=== PATIENT | male | born 1930 | race Caucasian/White ===

== ENCOUNTER → 2016-07-10 | Outpatient (CLI) | payer MEDICARE, OTHER | END | disposition home or self-care (01) | LOC: CFH 13:13 | PROVIDERS: ATTEND Physician Assistant | DX: E27.9 Disorder of adrenal gland, unspecified (principal); R06.02 Shortness of breath; R63.4 Abnormal weight loss; I48.2 Chronic atrial fibrillation; I10 Essential (primary) hypertension; E03.9 Hypothyroidism, unspecified; R59.1 Generalized enlarged lymph nodes | CPT/HCPCS: 71250; 74176 ==

== ENCOUNTER 2016-07-20 09:22 | Inpatient (IN) | payer MEDICARE, OTHER ==
[~2016-07-20] VITALS: Ht 175.3 cm; Wt 77.4 kg
[2016-07-20] MEDS ORDERED: SODIUM CHLORIDE 0.9% 1,000ML IVBOLUS ONE (09:30)
[2016-07-20] MEDS ORDERED: SODIUM CHLORIDE FLUSH 10ML SYR IVF ONE (09:30)
[2016-07-20] MEDS ORDERED: ONDA4TAB7 PO (09:31)
[2016-07-20] MEDS ORDERED: ASPI-13 PO (09:31)
[2016-07-20] MEDS ORDERED: LEVO100T5 PO (09:31)
[2016-07-20] MEDS ORDERED: ATEN25TA PO (09:31)
[2016-07-20 09:57] LABS: ASPARTATE AMINO TRANSFERASE 104 U/L (15-37); BLOOD UREA NITROGEN 29 mg/dL (7-18)
[2016-07-20 10:04] LABS: IS PT STATUS REG ER OR PRE ER? YES
[2016-07-20 10:10] LABS: DIFF TOTAL CELLS COUNTED 100 CELL DIFF
[2016-07-20 10:15] LABS: VERIFY COUNTS? YES
[2016-07-20] MEDS ORDERED: DILTIAZEM 60 MG TABLET PO ONE (10:30)
[2016-07-20] MEDS ORDERED: DILTIAZEM 5 MG/ML, 5ML IVPush ONE (10:30)
[2016-07-20] MEDS ORDERED: CEFTRIAXONE PMX 1GM/50ML 50 ML ONE (11:10)
[2016-07-20] MEDS ORDERED: DILTIAZEM 5 MG/ML, 5ML ONE (11:11)
[2016-07-20] MEDS ORDERED: CEFTRIAXONE PMX 1GM/50ML 50 ML IV ONE (11:30)
[2016-07-20] MEDS ORDERED: DOCUSATE 100 MG CAPSULE PO PRN (13:00)
[2016-07-20] MEDS ORDERED: HYDROcodone/APAP 5/325 TABLET PO PRN (13:00)
[2016-07-20] MEDS ORDERED: BISACODYL 10 MG SUPP PR PRN (13:00)
[2016-07-20] MEDS ORDERED: MORPHINE SULFATE 4 MG/ML, 1ML IVPush PRN (13:00)
[2016-07-20] MEDS ORDERED: CEFTRIAXONE PMX 1GM/50ML 50 ML IV SCH (13:00)
[2016-07-20] MEDS ORDERED: POLYETHYLENE GLYCOL 17 GM PACKET PO PRN (13:00)
[2016-07-20] MEDS ORDERED: ONDANSETRON 2MG/ML, 2ML IVP PRN (13:00)
[2016-07-20] MEDS ORDERED: LABETALOL 5MG/ML, 20ML IV PRN (13:00)
[2016-07-20] MEDS: SODIUM CHLORIDE 0.9% 1,000 ML IV SCH ×2 (13:39→22:47)
[2016-07-20] MEDS ORDERED: HEPARIN 5,000 UNITS/ML, 1ML IV ONE (17:00)
[2016-07-20] MEDS ORDERED: HEPARIN 5,000 UNITS/ML, 1ML IV PRN (17:00)
[2016-07-20] MEDS ORDERED: HEPARIN 25,000 UNITS/500ML PMX 500 ML IV PRN (17:00)
[2016-07-20] MEDS ORDERED: HEPARIN 25,000 UNITS/500ML PMX 500 ML ONE (17:34)
[2016-07-20] MEDS ORDERED: HEPARIN 5,000 UNITS/ML, 1ML ONE (17:42)
[2016-07-20] MEDS: ATENOLOL 25 MG TABLET PO SCH (23:46)
[2016-07-21 00:17] VITALS: BP 125/85
[2016-07-21 01:12] VITALS: BP 124/85
[2016-07-21 07:47] VITALS: BP 108/74
[2016-07-21 08:36] LABS: ASPARTATE AMINO TRANSFERASE 130 U/L (15-37); BLOOD UREA NITROGEN 22 mg/dL (7-18)
[2016-07-21] MEDS: ATENOLOL 25 MG TABLET PO SCH (08:54)
[2016-07-21] MEDS: ASPIRIN 325 MG TABLET EC PO SCH (08:54)
[2016-07-21] MEDS: LEVOTHYROXINE 100 MCG TABLET PO SCH ×2 (08:54→11:13)
[2016-07-21] MEDS: HEPARIN 5,000 UNITS/ML, 1ML SQ SCH ×2 (09:02→17:43)
[2016-07-21] MEDS ORDERED: SODIUM CHLORIDE 0.9% 1,000 ML IV SCH (11:00)
[2016-07-21 14:15] VITALS: BP 102/64
[2016-07-21] MEDS ORDERED: OMNIPAQUE 350 MG/ML, 100ML BOTTLE ONE ×2 (14:33→18:51)
[2016-07-21] MEDS: CEFTRIAXONE PMX 1GM/50ML 50 ML IV SCH (14:56)
[2016-07-21 17:42] VITALS: BP 117/72
[2016-07-21] MEDS: METOPROLOL TARTRATE 100 MG TABLET PO SCH (17:42)
[2016-07-21 19:19] VITALS: BP 90/57
[2016-07-22 00:42] VITALS: BP 100/60
[2016-07-22] MEDS: HEPARIN 5,000 UNITS/ML, 1ML SQ SCH ×3 (01:53→17:30)
[2016-07-22] MEDS: METOPROLOL TARTRATE 100 MG TABLET PO SCH ×2 (05:22→17:30)
[2016-07-22] MEDS: LEVOTHYROXINE 100 MCG TABLET PO SCH (05:22)
[2016-07-22 07:19] VITALS: BP 127/93
[2016-07-22] MEDS: ASPIRIN 325 MG TABLET EC PO SCH (08:53)
[2016-07-22 14:32] VITALS: BP 138/104
[2016-07-22] MEDS: CEFTRIAXONE PMX 1GM/50ML 50 ML IV SCH (14:59)
[2016-07-22 19:46] VITALS: BP 122/90
[2016-07-23] MEDS: HEPARIN 5,000 UNITS/ML, 1ML SQ SCH (00:03)
[2016-07-23 00:54] VITALS: BP 99/65
[2016-07-23] MEDS: LEVOTHYROXINE 100 MCG TABLET PO SCH (05:25)
[2016-07-23] MEDS: METOPROLOL TARTRATE 100 MG TABLET PO SCH ×2 (05:26→17:27)
[2016-07-23 06:01] LABS: BLOOD UREA NITROGEN 16 mg/dL (7-18)
[2016-07-23 06:02] LABS: ASPARTATE AMINO TRANSFERASE 136 U/L (15-37); PROSTATE SPECIFIC ANTIGEN 4.79 ng/mL (0.00-4.00)
[2016-07-23 06:30] LABS: DIFF TOTAL CELLS COUNTED 100 CELL DIFF
[2016-07-23 06:31] LABS: VERIFY COUNTS? YES
[2016-07-23] MEDS: ASPIRIN 325 MG TABLET EC PO SCH (07:53)
[2016-07-23 08:20] VITALS: BP 122/87
[2016-07-23] MEDS ORDERED: DIGOXIN 0.25 MG/ML, 2ML IVPush ONE (08:30)
[2016-07-23] MEDS ORDERED: AMIODARONE 150 MG in DEXTROSE 5% 100 ML IV ONE (09:00)
[2016-07-23] MEDS ORDERED: FILTER 0.22 MICRON FOR AMIODARONE IV PRN (09:30)
[2016-07-23] MEDS: AMIODARONE 900 MG in DEXTROSE 5% 482 ML IV PRN (11:47)
[2016-07-23] MEDS: CEFTRIAXONE PMX 1GM/50ML 50 ML IV SCH (14:42)
[2016-07-23 15:29] VITALS: BP 126/82
[2016-07-23 19:55] VITALS: BP 138/87
[2016-07-24 01:48] VITALS: BP 136/95
[2016-07-24] MEDS: ACETAMINOPHEN 325 MG TABLET PO PRN ×3 (02:29→21:34)
[2016-07-24 06:11] LABS: BLOOD UREA NITROGEN 13 mg/dL (7-18)
[2016-07-24] MEDS: METOPROLOL TARTRATE 100 MG TABLET PO SCH ×2 (06:14→17:39)
[2016-07-24] MEDS: LEVOTHYROXINE 100 MCG TABLET PO SCH (06:14)
[2016-07-24 06:44] LABS: DIFF TOTAL CELLS COUNTED 100 CELL DIFF
[2016-07-24 06:45] LABS: VERIFY COUNTS? YES
[2016-07-24 07:38] VITALS: BP 139/104
[2016-07-24] MEDS: DIGOXIN 0.25 MG TABLET PO SCH (08:56)
[2016-07-24] MEDS: POLYETHYLENE GLYCOL 17 GM PACKET PO SCH (08:56)
[2016-07-24] MEDS: AMIODARONE 900 MG in DEXTROSE 5% 482 ML IV PRN (09:10)
[2016-07-24 13:13] VITALS: BP 139/79
[2016-07-24] MEDS: CEFTRIAXONE PMX 1GM/50ML 50 ML IV SCH (14:57)
[2016-07-24 19:28] VITALS: BP 130/89
[2016-07-24] MEDS: AMIODARONE 200 MG TABLET PO SCH (21:34)
[2016-07-25 02:16] VITALS: BP 133/87
[2016-07-25] MEDS: ACETAMINOPHEN 325 MG TABLET PO PRN (02:42)
[2016-07-25] MEDS: METOPROLOL TARTRATE 100 MG TABLET PO SCH (05:44)
[2016-07-25] MEDS: LEVOTHYROXINE 100 MCG TABLET PO SCH (05:44)
[2016-07-25 06:15] LABS: ASPARTATE AMINO TRANSFERASE 141 U/L (15-37); BLOOD UREA NITROGEN 12 mg/dL (7-18)
[2016-07-25 07:43] VITALS: BP 126/82
[2016-07-25] MEDS: POLYETHYLENE GLYCOL 17 GM PACKET PO SCH (09:00)
[2016-07-25] MEDS: DIGOXIN 0.25 MG TABLET PO SCH (09:33)
[2016-07-25] MEDS: AMIODARONE 200 MG TABLET PO SCH (09:34)
[2016-07-25] MEDS ORDERED: DIGO250T PO (12:34)
[2016-07-25] MEDS ORDERED: DOCU-30 PO (12:34)
[2016-07-25] MEDS ORDERED: AMIO200T42 PO (12:34)
[2016-07-25] MEDS ORDERED: CEFD300C37 PO (12:34)
[2016-07-25] MEDS ORDERED: POLY17PO5 PO (12:34)
[2016-07-25] MEDS ORDERED: METO-99 PO (12:34)
[2016-07-25 13:18] VITALS: BP 113/78
[2016-07-25] MEDS: CEFTRIAXONE PMX 1GM/50ML 50 ML IV SCH (13:31)
== END 2016-07-25 15:30 | disposition home health service (06) | DRG 308 ==
LOC: ED 09:56 → EDIP 11:31 → 5SO 20:02 → DCLOUNGE 07-25 15:05
PROVIDERS: ADMIT Internal Medicine; ATTEND Internal Medicine
DX: I48.0 Paroxysmal atrial fibrillation (principal); N17.0 Acute kidney failure with tubular necrosis; E87.1 Hypo-osmolality and hyponatremia; E44.0 Moderate protein-calorie malnutrition; C78.7 Secondary malignant neoplasm of liver and intrahepatic bile duct; D68.59 Other primary thrombophilia; D64.9 Anemia, unspecified; B96.20 Unspecified Escherichia coli [E. coli] as the cause of diseases classified elsewhere; E03.9 Hypothyroidism, unspecified; I48.2 Chronic atrial fibrillation; E27.9 Disorder of adrenal gland, unspecified; I45.6 Pre-excitation syndrome; R73.9 Hyperglycemia, unspecified; R74.0 Nonspecific elevation of levels of transaminase and lactic acid dehydrogenase [LDH]; R59.0 Localized enlarged lymph nodes; N30.90 Cystitis, unspecified without hematuria; Z66 Do not resuscitate; Z68.25 Body mass index [BMI] 25.0-25.9, adult; Z88.1 Allergy status to other antibiotic agents; Z88.0 Allergy status to penicillin; Z88.8 Allergy status to other drugs, medicaments and biological substances; Z79.82 Long term (current) use of aspirin; Z79.899 Other long term (current) drug therapy; Z82.49 Family history of ischemic heart disease and other diseases of the circulatory system; Z83.3 Family history of diabetes mellitus; Z85.828 Personal history of other malignant neoplasm of skin; Z87.440 Personal history of urinary (tract) infections; Z95.0 Presence of cardiac pacemaker
CPT/HCPCS: 36415; 71010; 74177; 76705; 78582; 80048; 80053; 81001; 83605; 83735; 83880; 84145; 84153; 84443; 84484; 85025; 85379; 85520; 85610; 85730; 87040; 87077; 87086; 87186; 87324; 93005; 93970; 96365; 96366; 96367; 96375; 96376; J0696; J1644; J2250; J2405; J3010; Q9967; A9540; A9558; C9898; J0282; J1160; J2310; J7030; J7060

== ENCOUNTER 2016-07-27 06:13 | Day surgery (SDC) | payer MEDICARE, OTHER ==
[~2016-07-27] VITALS: Ht 175.3 cm; Wt 74.5 kg
[~2016-07-27 06:13] MED LIST: AMIO200T42 PO; ASPI-13 PO; ATEN25TA PO; CEFD300C2 PO; DIGO250T PO; DOCU-30 PO; LEVO100T5 PO; METO-99 PO; ONDA4TAB7 PO; POLY17PO5 PO
[2016-07-27] MEDS ORDERED: SODIUM CHLORIDE 0.9% 1,000 ML IV SCH (06:33)
[2016-07-27 07:15] VITALS: BP 100/70
[2016-07-27] MEDS ORDERED: MIDAZOLAM 1 MG/ML, 5ML ONE (07:39)
[2016-07-27] MEDS ORDERED: NALOXONE 1 MG/ML, 2ML ONE (07:40)
[2016-07-27] MEDS ORDERED: FLUMAZENIL 0.1 MG/1 ML, 5ML ONE (07:40)
[2016-07-27] MEDS ORDERED: FENTANYL PF 100 MCG/2ML ONE (07:40)
== END 2016-07-27 11:05 | disposition home or self-care (01) ==
LOC: OUT 06:13
PROVIDERS: ATTEND Internal Medicine
DX: R16.0 Hepatomegaly, not elsewhere classified (principal); I11.9 Hypertensive heart disease without heart failure
CPT/HCPCS: 36415; 47000; 77012; 85610; 88307; J2250; J3010; 99156; 99157; J2310

== ENCOUNTER 2016-07-27 11:12 | Inpatient (IN) | payer MEDICARE, OTHER ==
[~2016-07-27] VITALS: Ht 167.6 cm; Wt 82.6 kg
[~2016-07-27 11:12] MED LIST changes: -CEFD300C2 PO; +CEFD300C37 PO
[2016-07-27 12:13] LABS: BLOOD UREA NITROGEN 17 mg/dL (7-18)
[2016-07-27 12:29] LABS: DIFF TOTAL CELLS COUNTED 100 CELL DIFF
[2016-07-27 12:30] LABS: VERIFY COUNTS? YES
[2016-07-27] MEDS ORDERED: VANCOMYCIN PER PHARMACY MC ONE (12:38)
[2016-07-27] MEDS ORDERED: CEFTRIAXONE PMX 1GM/50ML 50 ML ONE (12:47)
[2016-07-27] MEDS ORDERED: CEFTRIAXONE PMX 1GM/50ML 50 ML IV ONE (13:00)
[2016-07-27] MEDS ORDERED: VANCOMYCIN 1,500 MG in SODIUM CHLORIDE 0.9% 250 ML IV ONE (13:30)
[2016-07-27] MEDS ORDERED: VANCOMYCIN 1,500 MG in SODIUM CHLORIDE 0.9% 500 ML IV ONE (14:00)
[2016-07-27] MEDS: SODIUM CHLORIDE 0.9% 1,000 ML IV SCH ×2 (14:20→22:58)
[2016-07-27] MEDS ORDERED: MORPHINE SULFATE 4 MG/ML, 1ML IVPush PRN (14:30)
[2016-07-27] MEDS ORDERED: VANCOMYCIN PER PHARMACY MC PRN (14:30)
[2016-07-27] MEDS ORDERED: DOCUSATE 100 MG CAPSULE PO PRN (14:30)
[2016-07-27] MEDS ORDERED: POLYETHYLENE GLYCOL 17 GM PACKET PO PRN (14:30)
[2016-07-27] MEDS ORDERED: PIPERACILLIN/TAZO/PMX 3.375GM 50 ML IV SCH (15:00)
[2016-07-27] MEDS ORDERED: ENOXAPARIN 40 MG/0.4 ML ONE (15:04)
[2016-07-27] MEDS: ENOXAPARIN 40 MG/0.4 ML SQ SCH (16:07)
[2016-07-27] MEDS ORDERED: PHARMACOKINETIC CONSULTATION MC ONE (16:30)
[2016-07-27] MEDS ORDERED: PHARMACOKINETIC MONITORING MC PRN (16:30)
[2016-07-27] MEDS: PIPERACILLIN/TAZO/PMX 3.375GM 50 ML IV SCH ×2 (17:35→22:52)
[2016-07-27] MEDS ORDERED: SODIUM CHLORIDE 0.9%, 500ML IVBOLUS ONE (19:30)
[2016-07-27] MEDS: METOPROLOL TARTRATE 100 MG TABLET PO SCH (20:03)
[2016-07-27 20:50] VITALS: BP 102/67
[2016-07-27] MEDS: AMIODARONE 200 MG TABLET PO SCH (22:52)
[2016-07-27] MEDS: FAMOTIDINE 20 MG/2 ML IV SCH (22:52)
[2016-07-28 02:24] VITALS: BP 112/80
[2016-07-28] MEDS: ACETAMINOPHEN 325 MG TABLET PO PRN ×2 (02:28→20:44)
[2016-07-28] MEDS: METOPROLOL TARTRATE 100 MG TABLET PO SCH ×2 (05:08→18:36)
[2016-07-28] MEDS: PIPERACILLIN/TAZO/PMX 3.375GM 50 ML IV SCH ×2 (05:08→12:20)
[2016-07-28 05:28] LABS: BLOOD UREA NITROGEN 18 mg/dL (7-18)
[2016-07-28 07:12] LABS: DIFF TOTAL CELLS COUNTED 100 CELL DIFF
[2016-07-28 07:13] LABS: VERIFY COUNTS? YES
[2016-07-28 07:47] VITALS: BP 123/77
[2016-07-28] MEDS: AMIODARONE 200 MG TABLET PO SCH ×2 (08:52→20:44)
[2016-07-28] MEDS: DIGOXIN 0.25 MG TABLET PO SCH (08:52)
[2016-07-28] MEDS: FAMOTIDINE 20 MG/2 ML IV SCH ×2 (08:53→20:44)
[2016-07-28] MEDS: ASPIRIN 325 MG TABLET EC PO SCH (08:53)
[2016-07-28] MEDS: LEVOTHYROXINE 100 MCG TABLET PO SCH (08:53)
[2016-07-28] MEDS: SODIUM CHLORIDE 0.9% 1,000 ML IV SCH (12:20)
[2016-07-28] MEDS ORDERED: VANCOMYCIN 1,600 MG in SODIUM CHLORIDE 0.9% 250 ML IV SCH (14:00)
[2016-07-28 14:34] VITALS: BP 141/100
[2016-07-28] MEDS: CEFTAROLINE 400 MG in SODIUM CHLORIDE 0.9% 100 ML IV SCH (15:11)
[2016-07-28] MEDS: ENOXAPARIN 40 MG/0.4 ML SQ SCH (15:11)
[2016-07-28 18:34] VITALS: BP 134/90
[2016-07-28] MEDS: ONDANSETRON 2MG/ML, 2ML IVP PRN (18:36)
[2016-07-28 21:23] VITALS: BP 116/65
[2016-07-29] MEDS: SODIUM CHLORIDE 0.9% 1,000 ML IV SCH ×2 (01:01→14:16)
[2016-07-29 02:22] VITALS: BP 132/91
[2016-07-29] MEDS: CEFTAROLINE 400 MG in SODIUM CHLORIDE 0.9% 100 ML IV SCH ×2 (02:25→14:17)
[2016-07-29] MEDS: METOPROLOL TARTRATE 100 MG TABLET PO SCH ×2 (05:31→17:43)
[2016-07-29] MEDS: LEVOTHYROXINE 100 MCG TABLET PO SCH (05:31)
[2016-07-29 06:07] LABS: ASPARTATE AMINO TRANSFERASE 577 U/L (15-37); BLOOD UREA NITROGEN 15 mg/dL (7-18)
[2016-07-29 06:33] LABS: DIFF TOTAL CELLS COUNTED 100 CELL DIFF
[2016-07-29 06:36] LABS: VERIFY COUNTS? YES
[2016-07-29 06:58] VITALS: BP 145/80
[2016-07-29] MEDS: FAMOTIDINE 20 MG/2 ML IV SCH ×2 (09:20→21:53)
[2016-07-29] MEDS: ASPIRIN 325 MG TABLET EC PO SCH (09:23)
[2016-07-29] MEDS: AMIODARONE 200 MG TABLET PO SCH (09:23)
[2016-07-29] MEDS: DIGOXIN 0.25 MG TABLET PO SCH (09:24)
[2016-07-29] MEDS: ONDANSETRON 2MG/ML, 2ML IVP PRN ×2 (12:21→17:42)
[2016-07-29 14:00] VITALS: BP 131/82
[2016-07-29] MEDS: ENOXAPARIN 40 MG/0.4 ML SQ SCH (16:04)
[2016-07-29 20:00] VITALS: BP 122/76
[2016-07-30 01:54] VITALS: BP 120/71
[2016-07-30] MEDS: CEFTAROLINE 400 MG in SODIUM CHLORIDE 0.9% 100 ML IV SCH ×2 (02:11→13:49)
[2016-07-30 05:31] LABS: BLOOD UREA NITROGEN 13 mg/dL (7-18)
[2016-07-30 06:05] LABS: DIFF TOTAL CELLS COUNTED 100 CELL DIFF
[2016-07-30 06:06] LABS: VERIFY COUNTS? YES
[2016-07-30 06:08] LABS: ANISOCYTOSIS 1+; LARGE PLATELETS 1+
[2016-07-30 06:09] LABS: POLYCHROMASIA 1+
[2016-07-30 06:27] VITALS: BP 129/78
[2016-07-30] MEDS: SODIUM CHLORIDE 0.9% 1,000 ML IV SCH ×2 (06:30→16:42)
[2016-07-30] MEDS: METOPROLOL TARTRATE 100 MG TABLET PO SCH ×2 (06:30→18:25)
[2016-07-30] MEDS: LEVOTHYROXINE 100 MCG TABLET PO SCH (06:31)
[2016-07-30 06:37] VITALS: BP 129/78
[2016-07-30] MEDS: ASPIRIN 325 MG TABLET EC PO SCH (08:14)
[2016-07-30] MEDS: FAMOTIDINE 20 MG/2 ML IV SCH ×2 (08:14→21:00)
[2016-07-30] MEDS: ONDANSETRON 2MG/ML, 2ML IVP PRN (08:15)
[2016-07-30] MEDS: DIGOXIN 0.25 MG TABLET PO SCH (08:18)
[2016-07-30 13:01] VITALS: BP 124/78
[2016-07-30] MEDS: ENOXAPARIN 40 MG/0.4 ML SQ SCH (16:35)
[2016-07-30 20:30] VITALS: BP 148/75
[2016-07-31 01:24] VITALS: BP 146/87
[2016-07-31] MEDS: CEFTAROLINE 400 MG in SODIUM CHLORIDE 0.9% 100 ML IV SCH ×2 (01:32→15:52)
[2016-07-31 05:56] LABS: ASPARTATE AMINO TRANSFERASE 218 U/L (15-37); BLOOD UREA NITROGEN 13 mg/dL (7-18)
[2016-07-31 05:59] VITALS: BP 139/87
[2016-07-31] MEDS: METOPROLOL TARTRATE 100 MG TABLET PO SCH ×2 (06:02→17:07)
[2016-07-31] MEDS: LEVOTHYROXINE 100 MCG TABLET PO SCH (06:02)
[2016-07-31 07:18] VITALS: BP 120/80
[2016-07-31] MEDS: SODIUM CHLORIDE 0.9% 1,000 ML IV SCH ×2 (07:25→17:07)
[2016-07-31] MEDS: DIGOXIN 0.25 MG TABLET PO SCH (08:22)
[2016-07-31] MEDS: FAMOTIDINE 20 MG/2 ML IV SCH ×2 (08:22→21:51)
[2016-07-31] MEDS: ASPIRIN 325 MG TABLET EC PO SCH (08:23)
[2016-07-31 12:40] VITALS: BP 122/85
[2016-07-31] MEDS: ONDANSETRON 2MG/ML, 2ML IVP PRN (13:22)
[2016-07-31] MEDS: ENOXAPARIN 40 MG/0.4 ML SQ SCH (17:07)
[2016-07-31 19:03] VITALS: BP 128/80
[2016-08-01 01:02] VITALS: BP 124/75
[2016-08-01] MEDS: CEFTAROLINE 400 MG in SODIUM CHLORIDE 0.9% 100 ML IV SCH ×2 (04:09→17:35)
[2016-08-01] MEDS: SODIUM CHLORIDE 0.9% 1,000 ML IV SCH ×3 (04:10→20:53)
[2016-08-01 05:15] VITALS: BP 131/92
[2016-08-01] MEDS: ACETAMINOPHEN 325 MG TABLET PO PRN (05:24)
[2016-08-01] MEDS: LEVOTHYROXINE 100 MCG TABLET PO SCH (05:24)
[2016-08-01] MEDS: METOPROLOL TARTRATE 100 MG TABLET PO SCH ×2 (05:24→17:35)
[2016-08-01 08:53] VITALS: BP 138/88
[2016-08-01] MEDS: FAMOTIDINE 20 MG/2 ML IV SCH ×2 (09:13→20:53)
[2016-08-01] MEDS: DIGOXIN 0.25 MG TABLET PO SCH (09:13)
[2016-08-01] MEDS: ONDANSETRON 2MG/ML, 2ML IVP PRN (09:13)
[2016-08-01] MEDS: ASPIRIN 325 MG TABLET EC PO SCH (09:13)
[2016-08-01 09:47] LABS: BLOOD UREA NITROGEN 14 mg/dL (7-18)
[2016-08-01 10:08] LABS: ANISOCYTOSIS 1+
[2016-08-01 10:09] LABS: LARGE PLATELETS 1+; POLYCHROMASIA 1+
[2016-08-01 15:32] VITALS: BP 137/87
[2016-08-01] MEDS: ENOXAPARIN 40 MG/0.4 ML SQ SCH (17:35)
[2016-08-01 21:00] VITALS: BP 145/85
[2016-08-02 01:11] VITALS: BP 153/81
[2016-08-02] MEDS: SODIUM CHLORIDE 0.9% 1,000 ML IV SCH ×2 (03:01→22:00)
[2016-08-02] MEDS: CEFTAROLINE 400 MG in SODIUM CHLORIDE 0.9% 100 ML IV SCH ×2 (04:14→15:45)
[2016-08-02 05:30] VITALS: BP 137/98
[2016-08-02] MEDS: LEVOTHYROXINE 100 MCG TABLET PO SCH (05:35)
[2016-08-02] MEDS: METOPROLOL TARTRATE 100 MG TABLET PO SCH ×2 (05:35→16:55)
[2016-08-02 05:37] VITALS: BP 137/98
[2016-08-02 06:00] LABS: BLOOD UREA NITROGEN 14 mg/dL (7-18)
[2016-08-02 06:05] LABS: ASPARTATE AMINO TRANSFERASE 157 U/L (15-37)
[2016-08-02 06:35] LABS: DIFF TOTAL CELLS COUNTED 100 CELL DIFF
[2016-08-02 06:37] LABS: ANISOCYTOSIS 1+; POIKILOCYTOSIS 1+; POLYCHROMASIA 1+; VERIFY COUNTS? YES
[2016-08-02 07:34] VITALS: BP 150/94
[2016-08-02] MEDS: ASPIRIN 325 MG TABLET EC PO SCH (08:05)
[2016-08-02] MEDS: FAMOTIDINE 20 MG/2 ML IV SCH (08:05)
[2016-08-02] MEDS: DIGOXIN 0.25 MG TABLET PO SCH (08:05)
[2016-08-02] MEDS: LORazepam INTENSOL 2 MG/ML BC PRN ×3 (11:30→20:27)
[2016-08-02 14:28] VITALS: BP 126/79
[2016-08-02] MEDS: ENOXAPARIN 40 MG/0.4 ML SQ SCH (15:47)
[2016-08-02 20:10] VITALS: BP 142/84
[2016-08-02] MEDS: FAMOTIDINE 20 MG TABLET PO SCH (20:27)
[2016-08-03 04:20] VITALS: BP 155/86
[2016-08-03] MEDS: CEFTAROLINE 400 MG in SODIUM CHLORIDE 0.9% 100 ML IV SCH (04:28)
[2016-08-03 06:41] VITALS: BP 125/85
[2016-08-03] MEDS: DIGOXIN 0.25 MG TABLET PO SCH (09:25)
[2016-08-03] MEDS: ASPIRIN 325 MG TABLET EC PO SCH (09:25)
[2016-08-03] MEDS: FAMOTIDINE 20 MG TABLET PO SCH (09:25)
[2016-08-03] MEDS: METOPROLOL TARTRATE 100 MG TABLET PO SCH (09:25)
[2016-08-03] MEDS: LEVOTHYROXINE 100 MCG TABLET PO SCH (09:25)
[2016-08-03] MEDS: LORazepam INTENSOL 2 MG/ML BC PRN (09:34)
[2016-08-03] MEDS: SODIUM CHLORIDE 0.9% 1,000 ML IV SCH (12:00)
[2016-08-03 12:47] VITALS: BP 145/87
== END 2016-08-03 15:04 | DRG 871 ==
LOC: ED 12:56 → EDIP 14:10 → 5SO 15:39
PROVIDERS: ADMIT Hospitalist; ATTEND Hospitalist
DX: A41.9 Sepsis, unspecified organism (principal); E43 Unspecified severe protein-calorie malnutrition; I42.9 Cardiomyopathy, unspecified; E87.1 Hypo-osmolality and hyponatremia; C25.7 Malignant neoplasm of other parts of pancreas; C78.7 Secondary malignant neoplasm of liver and intrahepatic bile duct; E87.2 Acidosis; I50.22 Chronic systolic (congestive) heart failure; L03.114 Cellulitis of left upper limb; N39.0 Urinary tract infection, site not specified; D63.8 Anemia in other chronic diseases classified elsewhere; I45.6 Pre-excitation syndrome; E03.9 Hypothyroidism, unspecified; I48.2 Chronic atrial fibrillation; B96.20 Unspecified Escherichia coli [E. coli] as the cause of diseases classified elsewhere; I11.0 Hypertensive heart disease with heart failure; I49.5 Sick sinus syndrome; I80.8 Phlebitis and thrombophlebitis of other sites; R65.20 Severe sepsis without septic shock; Z51.5 Encounter for palliative care; Z66 Do not resuscitate; Z77.090 Contact with and (suspected) exposure to asbestos; Z68.29 Body mass index [BMI] 29.0-29.9, adult; Z88.0 Allergy status to penicillin; Z88.1 Allergy status to other antibiotic agents; Z88.8 Allergy status to other drugs, medicaments and biological substances; Z79.899 Other long term (current) drug therapy; Z80.0 Family history of malignant neoplasm of digestive organs; Z80.1 Family history of malignant neoplasm of trachea, bronchus and lung; Z82.49 Family history of ischemic heart disease and other diseases of the circulatory system; Z83.3 Family history of diabetes mellitus; Z85.828 Personal history of other malignant neoplasm of skin; Z87.440 Personal history of urinary (tract) infections; Z87.891 Personal history of nicotine dependence; Z95.0 Presence of cardiac pacemaker
CPT/HCPCS: 36415; 71010; 74000; 76705; 77012; 80048; 80053; 80162; 81001; 82040; 82105; 82962; 83605; 83735; 84100; 84145; 85014; 85018; 85025; 85610; 87040; 87086; 87205; 87324; 88307; 88341; 88342; 96365; 96367; 96368; 99156; 99157; J0696; J0712; J1650; J2405; J2543; J3370; G0461; J7030; J7040; J7050; S0028